=== PATIENT | male | born 1950 | race Asian ===

== ENCOUNTER 2018-01-04 00:18 | Emergency (ER) | payer MEDICARE, OTHER, SELFPAY ==
[2018-01-04 00:29] VITALS: BP 160/84; PULSE 75; RESP 18; TEMP 36.6; O2SAT 99; BMI 26.6
--- NOTE | 2018-01-04 00:48 | ED.MALEGU ---
HPI - Male Genitourinary General Chief complaint: Urogenital-Male Stated complaint: DIFFICULTY VOIDING Time Seen by Provider: 01/04/18 00:30 Source: patient and family Mode of arrival: ambulatory Limitations: no limitations History of Present Illness HPI Narrative: 67-year-old male or with history frequent nocturnal urination presents with an inability to urinate over the course of the day. He admits to some suprapubic tenderness. He denies any recent surgeries or exposure to anesthesia. He has not recently taken any pain medications. He denies any other neurologic symptoms such is back pain, saddle anesthesia, weakness of his lower extremities. He history of the same. He recently had a PSA drawn at an outside lab Relieving factors: none Exacerbating factors: none Reports denies other symptoms Related Data Previous Rx's Medication Instructions Recorded cephalexin [Keflex] 500 mg PO QID 7 Days #28 cap 01/04/18 Review of Systems Review of Systems All systems reviewed & are unremarkable except as noted in HPI and below Constitutional Denies chills, Denies fever(s), Denies lethargy and Denies weakness Eyes Denies change in vision, Denies eye discharge, Denies irritation and Denies loss of vision ENT Ears, Nose, Mouth, and Throat: Denies change in voice, Denies neck pain and Denies sore throat Cardiovascular Denies chest pain, Denies irregular heart rhythm, Denies lightheadedness, Denies palpitations, Denies dyspnea, Denies dyspnea on exertion and Denies orthopnea Respiratory Denies cough, Denies dyspnea, Denies dyspnea on exertion and Denies wheezing Gastrointestinal Gastrointestinal: Denies abdominal pain, Denies change in bowel habits, Denies diarrhea, Denies nausea and Denies vomiting Genitourinary Denies hematuria, Denies flank pain, Denies urinary incontinence and Denies urinary urgency Comments: Unable to urinate Musculoskeletal Denies neck pain Integumentary/Breasts Denies pruritus, Denies erythema, Denies rash and Denies wounds Neurologic Denies confusion, Denies loss of vision and Denies weakness Psychiatric Denies anxiety, Denies confusion, Denies depression, Denies homicidal ideation and Denies suicidal ideation Endocrine Denies palpitations Hematologic/Lymphatic Denies easy bruising Allergic/Immunologic Denies wheezing [facility] Social History Smoking Status: Never smoker Exam Initial Vital Signs Initial Vital Signs: Vital Signs Temperature 98 F 01/04/18 00:29 Pulse Rate 75 01/04/18 00:29 Respiratory Rate 18 01/04/18 00:29 Blood Pressure 160/84 H 01/04/18 00:29 Pulse Oximetry 99 01/04/18 00:29 Const General: cooperative and well developed Nutritional Appearance: well nourished Orientation: alert, awake, oriented x3 and not confused [facility] Head: normocephalic and atraumatic Ears: external ears normal and TM's normal bilaterally Nose: external nose normal and No nasal discharge Face and sinus: sinuses nontender, face symmetric, no sinus tenderness and No dry mucous membranes Mouth: oral mucosae normal and moist mucous membranes Teeth and gingiva: dentition normal Throat: tonsils normal and uvula midline Eyes General: appearance normal, both eyes and all related structures Eyelids: eyelids normal Conjunctivae: conjunctivae normal Sclera: sclerae normal Pupils: PERRL EOM: EOM intact bilaterally Neck Neck: normal visual inspection, trachea midline, No lymphadenopathy, No midline deformity and No JVD Lymphatic: No lymphedema Chest Chest: normal inspection of the chest Resp Effort & Inspection: normal respiratory effort, able to speak in complete sentences, no respiratory distress and no use of accessory muscles Auscultation: clear to auscultation bilaterally, no rales, no rhonchi and no wheezes Cardio Rate: regular rate Rhythm: regular rhythm Heart Sounds: no click, no gallops, no murmurs and no rubs Pulses: normal peripheral pulses GI Inspection: non-distended Palpation: soft, no hepatosplenomegaly, No guarding, No pulsatile mass and No tender Auscultation: normal bowel sounds Back/Spine/Pelvis Back: No CVA tenderness Cervical Spine: cervical ROM normal and No pain with cervical ROM Thoracic/Lumbar Spine: thoracic and lumbar spine normal to inspection Skin General: no rashes or lesions noted, No jaundice and No petechiae Neuro General: alert, oriented x3, gait normal and no focal motor deficits Speech: speech normal Extrem General: full ROM, no clubbing, cyanosis or edema, no pedal edema and no calf tenderness Psych Appearance: well kempt Mental Status: mental status grossly normal Attitude: cooperative Thought Content: normal and suicidality Judgment: judgment good Course Orders Ordered: ED Orders 01/04/18 01:05 Urine Culture Stat Urine Microscopic Stat Discontinued Medications Cefazolin Sodium (Keflex) 1 bottle [facility] [place] [facility] ONE Stop: 01/04/18 01:28 Last Admin: 01/04/18 01:36 Dose: 500 mg Reevaluation(s) Reevaluation #1: Bladder scan notes 690 mL, Johnson catheter placed by nursing and the patient has near complete resolution Vital Signs - 8 hr 01/04/18 00:29 Temperature 98 F Pulse Rate 75 Respiratory Rate 18 Blood Pressure 160/84 H Pulse Oximetry 99 MDM - Male Genitourinary Lab Data Lab Results 01/04/18 Range/Units 01:05 Urine RBC 1-5/hpf (0-5/HPF) Urine WBC 5-10/hpf H (0-5/HPF) Ur Squamous Epith Cells None seen Urine Bacteria None seen (None) Ur Culture Indicated? Specimen cultured Micro UA Comment Not Reportable Discharge Plan Departure Patient Disposition: Home, Self-Care Clinical Impression: Acute retention of urine, Hypertension, Urinary tract infection Discharge Date/Time: 01/04/18 01:49 Interventions: ED Discharge Assessment Last Done: 01/04/18 01:49 Instructions: DI for Urinary Retention in Men Activity Restrictions/Additional Instructions: *You have been diagnosed with [ acute urinary retention and urinary tract infection] *What to do: *Take medications as directed *Follow up with Urology in the next 5 days or so. Please call their office tomorrow morning. The Johnson catheter will stay in place until you can follow up *Return to ER if you should have any new, worsening or concerning symptoms, such as [ increasing pain, problems with the Johnson catheter, fever, chills or other bothersome symptoms Your blood pressure is slightly elevated and this can cause long-term health problems if not addressed appropriately. Please follow-up with your doctor to discuss your options] Prescriptions: New cephalexin [Keflex] 500 mg capsule 500 mg PO QID 7 Days Qty: 28 RF: 0 Referrals: Dane Zeng MD [Primary Care Provider] - Jong Olvera MD [Non-Staff] - Stand Alone Forms: Work/School Restrictions
[2018-01-04 01:13] LABS: Bacteria Urine None Seen
[2018-01-04 01:25] LABS: Culture Indicated Urine Specimen Cultured; RBC Urine 1-5/HPF (0-5/HPF); Squamous Epithelial Cell Urine None Seen; WBC Urine 5-10/HPF (0-5/HPF)
[2018-01-04] MEDS: cephALEXin 250 MG PREPACK 1 BOTTLE MISC (01:36)
--- NOTE | 2018-01-04 05:03 | ED_ITS ---
HPI - Male Genitourinary General Chief complaint: Urogenital-Male Stated complaint: DIFFICULTY VOIDING Time Seen by Provider: 01/04/18 00:30 Source: patient and family Mode of arrival: ambulatory Limitations: no limitations History of Present Illness HPI Narrative: 67-year-old male or with history frequent nocturnal urination presents with an inability to urinate over the course of the day. He admits to some suprapubic tenderness. He denies any recent surgeries or exposure to anesthesia. He has not recently taken any pain medications. He denies any other neurologic symptoms such is back pain, saddle anesthesia, weakness of his lower extremities. He history of the same. He recently had a PSA drawn at an outside lab Relieving factors: none Exacerbating factors: none Reports denies other symptoms Related Data Previous Rx's Medication Instructions Recorded cephalexin [Keflex] 500 mg PO QID 7 Days #28 cap 01/04/18 Review of Systems Review of Systems All systems reviewed & are unremarkable except as noted in HPI and below Constitutional Denies chills, Denies fever(s), Denies lethargy and Denies weakness Eyes Denies change in vision, Denies eye discharge, Denies irritation and Denies loss of vision ENT Ears, Nose, Mouth, and Throat: Denies change in voice, Denies neck pain and Denies sore throat Cardiovascular Denies chest pain, Denies irregular heart rhythm, Denies lightheadedness, Denies palpitations, Denies dyspnea, Denies dyspnea on exertion and Denies orthopnea Respiratory Denies cough, Denies dyspnea, Denies dyspnea on exertion and Denies wheezing Gastrointestinal Gastrointestinal: Denies abdominal pain, Denies change in bowel habits, Denies diarrhea, Denies nausea and Denies vomiting Genitourinary Denies hematuria, Denies flank pain, Denies urinary incontinence and Denies urinary urgency Comments: Unable to urinate Musculoskeletal Denies neck pain Integumentary/Breasts Denies pruritus, Denies erythema, Denies rash and Denies wounds Neurologic Denies confusion, Denies loss of vision and Denies weakness Psychiatric Denies anxiety, Denies confusion, Denies depression, Denies homicidal ideation and Denies suicidal ideation Endocrine Denies palpitations Hematologic/Lymphatic Denies easy bruising Allergic/Immunologic Denies wheezing [facility] Social History Smoking Status: Never smoker Exam Initial Vital Signs Initial Vital Signs: Vital Signs Temperature 98 F 01/04/18 00:29 Pulse Rate 75 01/04/18 00:29 Respiratory Rate 18 01/04/18 00:29 Blood Pressure 160/84 H 01/04/18 00:29 Pulse Oximetry 99 01/04/18 00:29 Const General: cooperative and well developed Nutritional Appearance: well nourished Orientation: alert, awake, oriented x3 and not confused [facility] Head: normocephalic and atraumatic Ears: external ears normal and TM's normal bilaterally Nose: external nose normal and No nasal discharge Face and sinus: sinuses nontender, face symmetric, no sinus tenderness and No dry mucous membranes Mouth: oral mucosae normal and moist mucous membranes Teeth and gingiva: dentition normal Throat: tonsils normal and uvula midline Eyes General: appearance normal, both eyes and all related structures Eyelids: eyelids normal Conjunctivae: conjunctivae normal Sclera: sclerae normal Pupils: PERRL EOM: EOM intact bilaterally Neck Neck: normal visual inspection, trachea midline, No lymphadenopathy, No midline deformity and No JVD Lymphatic: No lymphedema Chest Chest: normal inspection of the chest Resp Effort & Inspection: normal respiratory effort, able to speak in complete sentences, no respiratory distress and no use of accessory muscles Auscultation: clear to auscultation bilaterally, no rales, no rhonchi and no wheezes Cardio Rate: regular rate Rhythm: regular rhythm Heart Sounds: no click, no gallops, no murmurs and no rubs Pulses: normal peripheral pulses GI Inspection: non-distended Palpation: soft, no hepatosplenomegaly, No guarding, No pulsatile mass and No tender Auscultation: normal bowel sounds Back/Spine/Pelvis Back: No CVA tenderness Cervical Spine: cervical ROM normal and No pain with cervical ROM Thoracic/Lumbar Spine: thoracic and lumbar spine normal to inspection Skin General: no rashes or lesions noted, No jaundice and No petechiae Neuro General: alert, oriented x3, gait normal and no focal motor deficits Speech: speech normal Extrem General: full ROM, no clubbing, cyanosis or edema, no pedal edema and no calf tenderness Psych Appearance: well kempt Mental Status: mental status grossly normal Attitude: cooperative Thought Content: normal and suicidality Judgment: judgment good Course Orders Ordered: ED Orders 01/04/18 01:05 Urine Culture Stat Urine Microscopic Stat Discontinued Medications Cefazolin Sodium (Keflex) 1 bottle [facility] [place] Stop: 01/04/18 01:28 Last Admin: 01/04/18 01:36 Dose: 500 mg Reevaluation(s) Reevaluation #1: Bladder scan notes 690 mL, Johnson catheter placed by nursing and the patient has near complete resolution Vital Signs - 8 hr 01/04/18 00:29 Temperature 98 F Pulse Rate 75 Respiratory Rate 18 Blood Pressure 160/84 H Pulse Oximetry 99 MDM - Male Genitourinary Lab Data Lab Results 01/04/18 Range/Units 01:05 Urine RBC 1-5/hpf (0-5/HPF) Urine WBC 5-10/hpf H (0-5/HPF) Ur Squamous Epith Cells None seen Urine Bacteria None seen (None) Ur Culture Indicated? Specimen cultured Micro UA Comment Not Reportable Discharge Plan Departure Patient Disposition: Home, Self-Care Clinical Impression: Acute retention of urine, Hypertension, Urinary tract infection Discharge Date/Time: 01/04/18 01:49 Interventions: ED Discharge Assessment Last Done: 01/04/18 01:49 Instructions: DI for Urinary Retention in Men Activity Restrictions/Additional Instructions: *You have been diagnosed with [ acute urinary retention and urinary tract infection] *What to do: *Take medications as directed *Follow up with Urology in the next 5 days or so. Please call their office tomorrow morning. The Johnson catheter will stay in place until you can follow up *Return to ER if you should have any new, worsening or concerning symptoms , such as [ increasing pain, problems with the Johnson catheter, fever, chills or other bothersome symptoms Your blood pressure is slightly elevated and this can cause long-term health problems if not addressed appropriately. Please follow-up with your doctor to discuss your options] Prescriptions: New cephalexin [Keflex] 500 mg capsule 500 mg PO QID 7 Days Qty: 28 RF: 0 Referrals: Dane Zeng MD [Primary Care Provider] - Jong Olvera MD [Non-Staff] - Stand Alone Forms: Work/School Restrictions
== END 2018-01-04 01:49 | disposition home or self-care (01) ==
PROVIDERS: Emergency Provider Emergency Medicine
DX: N39.0 Urinary tract infection, site not specified (principal); I10 Essential (primary) hypertension; R33.9 Retention of urine, unspecified
CPT/HCPCS: 51701; 51798; 81003; 81015; 87086; 99283

== ENCOUNTER → 2019-11-07 15:47 | Outpatient (CLI) | payer MEDICARE, OTHER, SELFPAY ==
--- NOTE | 2019-11-07 15:53 | DI.MRI.S_ITS ---
PROCEDURE: MR KNEE LT WO CON INDICATIONS: BILATERAL KNEE PAIN TECHNIQUE: Noncontrast sagittal PD fast spin echo and T2 fast spin echo with fat saturation, sagittal 3-D FLASH with fat saturation; coronal T1 spin echo and PD fast spin echo with fat saturation, and axial PD fast spin echo with fat saturation through the knee. COMPARISON: None. FINDINGS: Image quality: Excellent. Menisci: Complex medial meniscal tear involving the body and posterior horn with macerated appearance and partial extrusion. Abnormal signal extends to the superior and inferior articular surfaces as well as the free margin. Lateral meniscus intact. Cruciate ligaments: Anterior cruciate ligament appears intact. Posterior cruciate ligament appears intact. Medial structures: The medial collateral ligament appears intact. Small ganglion cyst seen at the insertion of the semimembranosus tendon image 22/6 measuring 3 mm. There is also minimal fluid surrounding the gracilis tendon raising possibility of tenosynovitis. No abnormal bursal fluid. Lateral structures: The lateral collateral ligament intact. Biceps femoris tendon appears intact. Popliteus tendon grossly unremarkable. Iliotibial band appears intact. Anterior structures: Mild distal quadriceps tendinopathy. Medial and lateral patellofemoral ligaments intact. There is mild patellar tendinopathy. Prepatellar and superficial infrapatellar subcutaneous edema/fluid. Bones and cartilage: No focal marrow contusion or discrete low signal fracture line. Within the medial compartment, diffuse partial-thickness loss of the femoral and tibial articular cartilage. Subchondral marrow reactive changes in the tibial plateau. Within the lateral compartment, mild diffuse partial-thickness loss of the femoral cartilage. Intrasubstance signal changes in the tibial cartilage. Within the patellofemoral compartment, no focal cartilage defect Joint space: No joint effusion. Nails's cyst measuring approximately 4 cm in a cephalocaudad dimension. Possible 5 mm loose body seen in the posterior joint space, adjacent to the PCL image 70/9 IMPRESSION: Complex macerated tear involving the body and posterior horn of the medial meniscus with partial extrusion. Nails's cyst 5 mm loose body seen in the posterior joint space Mild gracilis tenosynovitis Patellar tendinopathy Dictated by: Lan Ramesh M.D. on 11/11/2019 at 9:10 Approved by: Lan Ramesh M.D. on 11/11/2019 at 9:20
--- NOTE | 2019-11-07 15:53 | DI.MRI.S_ITS ---
PROCEDURE: MR KNEE RT W CON INDICATIONS: BILATERAL KNEE PAIN TECHNIQUE: After the administration of 50 mL of dilute intra-articular Gadolinium contrast, sagittal T1 spin echo with fat saturation and PD fast spin echo with fat saturation, coronal T1 spin echo with and without fat saturation, coronal T2 fast spin echo with fat saturation, axial PD fast spin echo with fat saturation through the knee. COMPARISON: None. FINDINGS: Image quality: Excellent. Menisci: Medial meniscal tear involving the posterior horn and body, with associated para meniscal cysts adjacent a body measuring 5 x 7 x 10 mm for example image 19/6 Lateral meniscus intact. Cruciate ligaments: Anterior cruciate ligament appears intact. Posterior cruciate ligament appears intact. Medial structures: There is medial bowing of the medial collateral ligament, with mild internal signal changes and no complete rupture. There is adjacent soft tissue edema. The appearance could reflect reactive changes to medial compartment pathology, versus low-grade sprain of the MCL. Pes anserinus tendons appear grossly unremarkable. Semimembranosus tendon appears intact. Lateral structures: The lateral collateral ligament demonstrates thickening and intrasubstance signal change in keeping with low grade sprain, statistically chronic, although technically age indeterminate. Biceps femoris tendon appears intact. Popliteus tendon grossly unremarkable. Iliotibial band appears intact. Anterior structures: Quadriceps tendon intact. Medial and lateral patellofemoral ligaments intact. There is mild patellar tendinopathy. Prepatellar and superficial infrapatellar subcutaneous edema/fluid. Bones and cartilage: No focal marrow contusion or discrete low signal fracture line. Within the medial compartment, mild diffuse surface fraying of femoral and tibial cartilage without focal defect . There is also partial-thickness loss of the nonweightbearing posterior medial femoral condyle cartilage with prominent underlying marrow edema and cystic change. Within the lateral compartment, cartilage appears grossly intact Within the patellofemoral compartment, near full-thickness focal cartilage loss overlying the lateral femoral trochlea. There is prominent underlying subchondral marrow edema and cystic changes. Patellar cartilage appears grossly intact Joint space: No joint effusion. No Nails's cyst. No specific evidence of intra-articular loose body. IMPRESSION: Medial meniscal tear involving the posterior horn and body with associated parameniscal cyst. Mild patellar tendinopathy Degenerative joint disease as above, with prominent subchondral marrow cystic change and edema as above Dictated by: Lan Ramesh M.D. on 11/11/2019 at 9:52 Approved by: Lan Ramesh M.D. on 11/11/2019 at 10:02
== END ==
PROVIDERS: Referring Provider Family Medicine; Visit Provider Family Medicine
DX: M25.561 Pain in right knee (principal); M25.562 Pain in left knee; S83.232A Complex tear of medial meniscus, current injury, left knee, initial encounter; S83.241A Other tear of medial meniscus, current injury, right knee, initial encounter; M71.22 Synovial cyst of popliteal space [Baker], left knee; M65.862 Other synovitis and tenosynovitis, left lower leg; M17.11 Unilateral primary osteoarthritis, right knee
CPT/HCPCS: 73721; 73722

== ENCOUNTER → 2023-06-21 09:49 | Outpatient (CLI) | payer MEDICARE, OTHER, SELFPAY ==
--- NOTE | 2023-06-21 | DI.US.S_ITS ---
PROCEDURE: US RENAL COMPLETE INDICATIONS: CALCULUM IN BLADDER TECHNIQUE: Real-time scanning was performed of the kidneys and bladder, with image documentation. COMPARISON: None. FINDINGS: Kidneys: Kidneys are normal in size. Right kidney measures 10.1 cm long; left kidney measures 11.2 cm long. Right renal cortical thickness is 1.1 cm; left renal cortical thickness is 1.4 cm. Renal cortical echotexture is normal. No hydronephrosis or nephrolithiasis. No suspicious solid mass lesions. Bladder: Pre-void bladder volume is 100 mL. Post-void residual is 12 mL. Pre-void images demonstrate no intraluminal masses. There is a 1.7 cm stone within the urinary bladder. On pre-void images, bilateral ureteral jets are noted with color Doppler interrogation. (Of note, ureteral jets may not be detectable in up to 25% of cases due to insufficient differences in specific gravity between ureteral and bladder urine). Miscellaneous: There is increased hepatic echogenicity. The prostate is enlarged. IMPRESSION: 1. No nephrolithiasis or hydronephrosis. 2. 1.7 cm bladder calculus. 3. Small postvoid residual. 4. Increased hepatic echogenicity noted likely related to fatty infiltration of the liver but other sources of hepatocellular disease cannot be excluded. 5. Prostatomegaly. Dictated by: Corazon Simms M.D. on 06/21/2023 at 12:51 Approved by: Corazon Simms M.D. on 06/21/2023 at 12:56
== END ==
PROVIDERS: PCP Family Medicine; Referring Provider Urology; Visit Provider Urology
DX: N21.0 Calculus in bladder (principal)
CPT/HCPCS: 76770

== ENCOUNTER → 2024-10-21 11:05 | Outpatient (CLI) | payer MEDICARE, OTHER, SELFPAY ==
--- NOTE | 2024-10-21 11:07 | DI.MRI.S_ITS ---
PROCEDURE: MR LUMBAR SPINE WO CON INDICATIONS: RADICULOPATHY TECHNIQUE: Noncontrast sagittal T1 spin echo and T2 fast echo, sagittal STIR, and T2 fast spin echo through the lumbar spine. In cases with scoliosis, additional coronal T2 fast spin echo may be performed. COMPARISON: None. FINDINGS: Image quality: Excellent. Alignment and Curvature: No plain films are available for comparison, for numbering purposes. Thus, for the purposes of this examination, 5 lumbar type vertebral bodies will be presumed, as denoted on the montage panel. This should be confirmed and correlated with plain films, prior to any lumbar spinal intervention.There is normal bony alignment. Bone Marrow: Marrow is of normal overall signal. No acute vertebral body compression fractures. Mild reactive signal throughout the endplates of the lumbar and lower thoracic spine. Spinal Cord: Conus medullaris terminates at the L1-L2 disc space level. Visualized cord demonstrates normal signal and size. Paraspinous Soft Tissues: No paravertebral masses. T12-L1: Mild disc desiccation. No significant canal nor foraminal stenosis. L1-L2: Mild facet and ligamentum flavum hypertrophy. Mild diffuse disc bulge. Mild canal stenosis. Mild bilateral foraminal stenosis. L2-L3: Mild disc desiccation and diffuse disc bulge. Mild facet and ligamentum flavum hypertrophy. Mild epidural lipomatosis. Mild canal stenosis. Mild bilateral foraminal stenosis. L3-L4: Moderate disc desiccation. Mild disc height loss and diffuse disc bulge. Mild facet and ligamentum flavum hypertrophy. Mild epidural lipomatosis. Mild canal stenosis. Moderate bilateral foraminal stenosis. L4-L5: Moderate disc desiccation. Mild diffuse disc bulge. Mild facet and ligamentum flavum hypertrophy. Mild epidural lipomatosis. Mild canal stenosis. Moderate right and mild left foraminal stenosis. L5-S1: Moderate disc desiccation. Mild diffuse disc bulge. Mild bilateral facet hypertrophy. Mild canal stenosis. Moderate to severe bilateral foraminal stenosis with mild bilateral L5 nerve root compression. IMPRESSION: 1. Multilevel degenerative disc and facet disease, as well as ligamentum flavum hypertrophy and epidural lipomatosis. 2. Mild multilevel canal stenosis. 3. Multilevel foraminal stenoses, worst at L5-S1 where there is associated intraforaminal nerve root compression. Recommend correlation with clinical symptoms to ascertain relevance of this finding. 4. 5 lumbar type vertebral bodies were presumed for the current report. Plain films of the lumbar spine are recommended for confirmation, prior to any lumbar spinal intervention. Dictated by: Analisa Wolf M.D. on 10/21/2024 at 12:42 Approved by: Analisa Wolf M.D. on 10/21/2024 at 12:45
== END ==
LOC: MRI 11:06
PROVIDERS: PCP Family Medicine; Referring Provider Family Medicine; Visit Provider Family Medicine
DX: M51.16 Intervertebral disc disorders with radiculopathy, lumbar region (principal); M51.17 Intervertebral disc disorders with radiculopathy, lumbosacral region; M47.26 Other spondylosis with radiculopathy, lumbar region; M47.27 Other spondylosis with radiculopathy, lumbosacral region; M48.061 Spinal stenosis, lumbar region without neurogenic claudication; M48.07 Spinal stenosis, lumbosacral region
CPT/HCPCS: 72148

== ENCOUNTER → 2025-04-30 15:09 | Outpatient (CLI) | payer MEDICARE, OTHER, SELFPAY ==
--- NOTE | 2025-04-30 15:12 | DI.MRI.S_ITS ---
PROCEDURE: MR HEAD/BRAIN WO CON INDICATIONS: headache TECHNIQUE: Noncontrast axial T1 spin echo, axial T2 fast spin echo, sagittal and axial FLAIR, coronal T2 fast spin echo, axial gradient echo, axial diffusion and ADC through the brain. COMPARISON: None. FINDINGS: Image quality: Excellent. CSF Spaces: Basal cisterns are patent. No extra-axial fluid collections. Ventricles are normal in size and shape. Brain: No intracranial masses or hemorrhage. Sepulveda/white matter interface is normal. Brainstem appears normal. Diffusion-weighted images demonstrate no acute infarct. No chronic ischemic insults. Normal intravascular flow voids are present. Skull and face: Calvarium has normal marrow signal. Orbits appear normal. Sinuses: Small air-fluid level in the right maxillary sinus IMPRESSION: Unremarkable MRI of the brain Small air-fluid level in right maxillary sinus could reflect sinusitis Approved by: Jose Franklin M.D. on 04/30/2025 at 16:06
--- NOTE | 2025-04-30 15:12 | DI.MRI.S_ITS ---
PROCEDURE: MR CERVICAL SPINE WO CON INDICATIONS: neck pain TECHNIQUE: Noncontrast sagittal T1 spin echo and T2 fast spin echo, sagittal STIR, foraminal oblique sagittal T2 fast spin echo, and axial gradient echo or T2 fast spin echo through the cervical spine. COMPARISON: None. FINDINGS: Image quality: Excellent. Alignment and Curvature: There is normal bony alignment. Bone Marrow: C5-6 degenerative endplate changes Spinal Cord: Visualized spinal cord has normal size and signal. No cerebellar tonsillar herniation. Paraspinous Soft Tissues: No paravertebral masses. Prevertebral soft tissues are normal in thickness. C2-C3: Normal appearance. C3-C4: Posterior disc osteophyte complex. Mild central stenosis. No foraminal stenosis C4-C5: Central disc osteophyte complex. Moderate central stenosis with indentation of the ventral cord. No foraminal stenosis. C5-C6: Posterior disc osteophyte complex. Moderate central stenosis. Arthropathy. Moderate bilateral foraminal stenosis C6-C7: Mild disc bulge. No central or foraminal stenosis. C7-T1: No central or foraminal stenosis IMPRESSION: Multilevel degenerative disc disease and arthropathy results in varying degrees of central and foraminal stenosis including moderate central stenosis at C4-5 and C5-6 Approved by: Jose Franklin M.D. on 04/30/2025 at 16:26
== END ==
LOC: MRI 15:12
PROVIDERS: PCP Family Medicine; Referring Provider Family Medicine; Visit Provider Family Medicine
DX: M50.31 Other cervical disc degeneration, high cervical region (principal); M48.02 Spinal stenosis, cervical region; M47.812 Spondylosis without myelopathy or radiculopathy, cervical region; G44.86 Cervicogenic headache
CPT/HCPCS: 70551; 72141